=== PATIENT | female | born 1965 | race Caucasian/White ===

== ENCOUNTER → 2016-11-17 | Outpatient (CLI) | payer BC ==
[2016-11-18 06:47] LABS: ESTIMATED AVERAGE GLUCOSE 146 mg/dl; HA1C FLAG Normal (Normal)
== END | disposition home or self-care (01) ==
LOC: C.LABMFLN 09:23
PROVIDERS: ATTEND Nurse Practitioner Adult Health
DX: E11.9 Type 2 diabetes mellitus without complications (principal)

== ENCOUNTER → 2017-03-10 | Outpatient (CLI) | payer BC ==
[2017-03-11 06:47] LABS: ESTIMATED AVERAGE GLUCOSE 146 mg/dl; HA1C FLAG Normal (Normal)
== END | disposition home or self-care (01) ==
LOC: C.LABMFLN 15:52
PROVIDERS: ATTEND Nurse Practitioner Adult Health
DX: E11.9 Type 2 diabetes mellitus without complications (principal)

== ENCOUNTER → 2017-07-20 | Outpatient (CLI) | payer BC ==
[2017-07-20 18:44] LABS: ALB/GLOB RATIO 1.2 (0.9-2); ALT/SGPT 27 U/L (12-78); AST/SGOT 14 U/L (15-37); BLOOD UREA NITROGEN 24 mg/dl (7-18); BUN/CREATININE RATIO 32.5 (10-20); CALCIUM 8.9 mg/dl (8.5-10.1); CARBON DIOXIDE 28 mmol/L (21-32); CHLORIDE 100 mmol/L (98-107); CHOLESTEROL 173 mg/dl (0-200); CREATININE 0.73 mg/dl (0.60-1.20); GLUCOSE 92 mg/dl (70-99); POTASSIUM 3.9 mmol/L (3.5-5.1); SODIUM 135 mmol/L (136-145); TRIGLYCERIDES 66 mg/dl (0-150); VERY LOW DENSITY LIPOPROT CALC 13 mg/dl
[2017-07-20 18:46] LABS: CREATININE RANDOM URINE 87.3 mg/dl
[2017-07-20 18:54] LABS: ALKALINE PHOSPHATASE 109 U/L (45-117); CHOLESTEROL/HDL RATIO 2.2; HDL CHOLESTEROL 78 mg/dl; LDL CHOLESTEROL CALCULATED 82 mg/dl
[2017-07-21 07:33] LABS: ESTIMATED AVERAGE GLUCOSE 146 mg/dl; HA1C FLAG Normal (Normal)
== END | disposition home or self-care (01) ==
LOC: C.LABMFLN 16:00
PROVIDERS: ATTEND Nurse Practitioner Adult Health
DX: E78.5 Hyperlipidemia, unspecified (principal); I10 Essential (primary) hypertension; E11.9 Type 2 diabetes mellitus without complications

== ENCOUNTER → 2017-11-24 | Outpatient (CLI) | payer BC ==
[2017-11-25 06:28] LABS: HEMOGLOBIN A1C 6.9 % (4.5-5.6)
== END | disposition home or self-care (01) ==
LOC: C.LABMFLN 16:14
PROVIDERS: ATTEND Nurse Practitioner Adult Health
DX: E78.5 Hyperlipidemia, unspecified (principal); E11.9 Type 2 diabetes mellitus without complications

== ENCOUNTER → 2018-02-24 | Outpatient (CLI) | payer BC ==
[2018-02-25 06:26] LABS: HEMOGLOBIN A1C 6.9 % (4.5-5.6)
== END | disposition home or self-care (01) ==
LOC: C.LABMFLN 15:57
PROVIDERS: ATTEND Nurse Practitioner Adult Health
DX: Z00.00 Encounter for general adult medical examination without abnormal findings (principal); E78.5 Hyperlipidemia, unspecified; E11.9 Type 2 diabetes mellitus without complications